=== PATIENT | male | born 1980 | race Caucasian/White ===

== ENCOUNTER → 2016-05-19 | Outpatient (CLI) | payer BC ==
[2016-05-19 11:49] LABS: CHLORIDE,CL 108 mmol/L (98-110); SODIUM,NA 138 mmol/L (136-146)
== END ==
LOC: MW.CHFP 11:07
PROVIDERS: ATTEND Nurse Practitioner Family
DX: R50.9 Fever, unspecified (principal); R19.7 Diarrhea, unspecified
CPT/HCPCS: 36415; 80053; 85025

== ENCOUNTER 2017-07-30 12:19 | Day surgery (SDC) | payer BC ==
[2017-07-30] MEDS ORDERED: Lidocaine 2% 5 ML SDV ONE (14:30)
[2017-07-30] MEDS ORDERED: Iopamidol 408 MG/ML 50 ML SDV ONE (14:30)
[2017-07-30] MEDS ORDERED: Betamethasone Acetate/Betamethasone Sod Phosphate 30 MG/5 ML MDV ONE (14:30)
[2017-07-30] MEDS ORDERED: Ropivacaine 0.5% 5 MG/ML 30 ML SDV ONE (14:30)
--- NOTE | 2017-07-30 15:15 | OR ---
SURGEON: Kanchan Higgins D.O. DATE OF PROCEDURE: 07/30/2017 OR STAFF PRESENT: 1. Ingrid Mcgregor RN. 2. Ingrid Lambert RN. 3. Andrew Eckert RT. WOUND CLASSIFICATION: I. PREOPERATIVE DIAGNOSES: 1. Bilateral spondylosis at L5-S1. 2. Bilateral spondylolisthesis at L5-S1. 3. Chronic low back pain. 4. degenerative disk disease, L5-S1. POSTOPERATIVE DIAGNOSES: 1. Bilateral spondylosis at L5-S1. 2. Bilateral spondylolisthesis at L5-S1. 3. Chronic low back pain. 4. degenerative disk disease, L5-S1. PROCEDURES PERFORMED: 1. Right L5-S1 pars injection. 2. Left L5-S1 pars injection. 3. Fluoroscopic guidance for needle placement. 4. Local with oral Valium for sedation. SCREENING QUESTIONS: The patient answered "No" to all the following questions: 1. Are you allergic to iodine, Betadine or latex? 2. Do you have a bleeding disorder? 3. Are you on anti-inflammatories or blood thinners? 4. Do you have any current local or systemic infections? MEDICAL NECESSITY: This is a patient with chronic low back pain who comes in for the above diagnostic procedure. This procedure is being performed in accordance with national guidelines written by the [employer]; please see medical necessity note in chart. DESCRIPTION OF PROCEDURE: The patient had the procedure thoroughly explained including risks, benefits and alternatives. Consent was signed in my clinic indicating understanding and willingness to proceed. The patient presented to [facility] and was escorted to the dressing room to disrobe and change into a hospital gown. Preoperative history and screening were performed by my nurse. Vital signs were taken and stable. The patient reported that Valium 10 milligrams was taken prior to the procedure. The patient was brought back to the procedure room and placed in the prone position on the procedure room table. A pillow was placed under the abdomen in order to flatten the lumbar lordosis. The back was prepped with ChloraPrep and sterilely draped. All personnel in the procedure room were dressed in appropriate attire including surgical scrubs, head and shoe covers. This was to ensure sterility while in the treatment room. During the time fluoroscopy was in use all personnel in the operating room wore lead luo with thyroid collars. Sterile technique was used during the procedure. The fluoroscope was positioned to provide a right oblique view for the L5 dorsal ramus block. This was begun by anesthetizing the skin and soft tissues over the right sacral sulcus. Then using fluoroscopic guidance, a sterile 22-gauge 3.5 inch spinal needle was positioned at the right sacral ala. Precise needle placement was confirmed by fluoroscopy in AP and oblique views, and 0.2 cubic centimeters of IsoVue-200 contrast dye was injected through microbore tubing under live fluoroscopy and showed no intravascular flow pattern and adequate flow over the target nerves. After negative aspiration, 0.5 cubic centimeters of 0.5% Ropivacaine was injected. No complications were noted. Then the fluoroscope was positioned for the left L5 dorsal ramus block. This was begun by anesthetizing the skin and soft tissues. Then with fluoroscopic guidance a sterile 22-gauge 3.5 inch spinal needle was positioned at the left sacral ala. Precise needle placement was confirmed with 0.2 cubic centimeters of IsoVue-200 contrast dye injected through microbore tubing under live fluoroscopy showing no intravascular flow pattern and adequate flow over the target L5 nerve. Then, 0.5 cubic centimeters of 0.5% Ropivacaine was injected after negative aspiration without complications. The procedure was well tolerated and vital signs were stable during and after the procedure. The staff escorted the patient to the recovery area. The patient was given both oral and written discharge and followup instructions. The patient will follow up with a pain diary which will be evaluated over this evening doing things that would normally cause pain. We will evaluate the efficacy of the diagnostic lumbar medial branch blocks as the patient will follow up in the clinic the next day. The patient was given both oral and written discharge and followup instructions. The patient voiced understanding including understanding of those signs and symptoms that would require emergency care and knows how to contact the office if there are any questions or concerns in the meantime. PREOPERATIVE PAIN: 8/10. POSTOPERATIVE PAIN: 6/10. FOLLOWUP: Follow up in [facility] with [facility] in 3 weeks. AJ / GELACIO /[id number]
== END 2017-07-30 14:40 | disposition home or self-care (01) ==
LOC: MW.SDS 12:19
PROVIDERS: ATTEND Anesthesiology
DX: G89.29 Other chronic pain (principal); M47.817 Spondylosis without myelopathy or radiculopathy, lumbosacral region; M43.17 Spondylolisthesis, lumbosacral region; M51.37 Other intervertebral disc degeneration, lumbosacral region; J32.9 Chronic sinusitis, unspecified; J34.2 Deviated nasal septum; H91.90 Unspecified hearing loss, unspecified ear; I10 Essential (primary) hypertension; E78.1 Pure hyperglyceridemia; F17.210 Nicotine dependence, cigarettes, uncomplicated; G47.33 Obstructive sleep apnea (adult) (pediatric); Z99.89 Dependence on other enabling machines and devices; Z79.899 Other long term (current) drug therapy
CPT/HCPCS: J0702; J2795; Q9966

== ENCOUNTER 2017-08-26 07:36 | Day surgery (SDC) | payer BC ==
[2017-08-26] MEDS ORDERED: EPINEPHrine 1 MG/ML SDV ONE (07:44)
[2017-08-26] MEDS ORDERED: Thrombin (Bovine) 5,000 Unit Kit ONE (07:44)
[2017-08-26] MEDS ORDERED: Lidocaine 1% with EPINEPHrine 1:100,000 10 ML MDV ONE (07:44)
[2017-08-26] MEDS ORDERED: Oxymetazoline 0.05% Nasal Spray 15 ML Bottle ONE (07:45)
[2017-08-26] MEDS ORDERED: Lidocaine 2% with EPINEPHrine 1:100,000 20 ML MDV ONE (07:45)
[2017-08-26] MEDS: Lactated Ringers 1,000 ML IV SCH (08:09)
--- NOTE | 2017-08-26 08:10 | PCM.HPR ---
H & P Addendum review - H & P Addendum Review Date of Original H & P: 08/18/17 Date Reviewed: 08/26/17 Time Reviewed: 09:15 Patient was Examined: No Changes
[2017-08-26] MEDS ORDERED: Remifentanil 1 MG Vial ONE ×3 (08:19→09:57)
--- NOTE | 2017-08-26 08:28 | PCM.PREANE ---
Preanesthetic Assessment - Anesthesia/Transfusion/Family Hx Anesthesia History: Prior Anesthesia Without Reaction Family History of Anesthesia Reaction: No Transfusion History: No Prior Transfusion(s) - Review of Systems General: No Symptoms Pulmonary: No Symptoms Cardiovascular: No Symptoms Gastrointestinal: No Symptoms Neurological: No Symptoms Other: Reports: None - Physical Assessment NPO Status Date: 08/25/17 NPO Status Time: 20:00 O2 Sat by Pulse Oximetry: 95 Respiratory Rate: 17 Vital Signs: Last Vital Signs Temp 35.8 C 08/26/17 07:50 Pulse 84 08/26/17 07:50 Resp 17 08/26/17 07:50 BP 144/82 H 08/26/17 07:50 Pulse Ox 95 08/26/17 07:50 Height: 1.88 m Weight: 123.377 kg ASA Class: 1 Mental Status: Alert & Oriented x3 Airway Class: Mallampati = 1 Dentition: Reports: Normal Dentition ROM/Head Extension: Full Lungs: Clear to Auscultation, Normal Respiratory Effort Cardiovascular: Regular Rate, Regular Rhythm - Allergies Allergies/Adverse Reactions: Allergies Allergy/AdvReac Type Severity Reaction Status Date / Time No Known Allergies Allergy Verified 08/21/17 10:35 - Blood Blood Available: No - Anesthesia Plan Pre-Op Medication Ordered: None - Acknowledgements Anesthesia Type Planned: General Anesthesia Pt an Appropriate Candidate for the Planned Anesthesia: Yes Alternatives and Risks of Anesthesia Discussed w Pt/Guardian: Yes Pt/Guardian Understands and Agrees with Anesthesia Plan: Yes Additional Comments: PMH: SINCERE, does not use cpap much, smoker , htn, SINCERE instruction sheets given. PreAnesthesia Questionnaire HEENT History: Reports: Other (See Below) Other HEENT History: wears glasses, deviated nasal septum Cardiovascular History: Reports: Hypertension Respiratory History: Reports: Sleep Apnea Other Respiratory History: does not use CPAP Musculoskeletal History: Reports: Other (See Below) Other Musculoskeletal History: occasional backpain Endocrine/Metabolic History: Reports: Obesity/BMI 30+ - Past Surgical History Head Surgeries/Procedures: Reports: None Musculoskeletal Surgical History: Reports: Carpal Tunnel Other Musculoskeletal Surgeries/Procedures:: jeanna carpal tunnel release - SUBSTANCE USE Smoking Status *Q: Current Every Day Smoker Tobacco Use Within Last Twelve Months: Cigarettes Recreational Drug Use History: No - HOME MEDS Home Medications: Home Meds Lidocaine/Prilocaine [Lidocaine-Prilocaine Cream] 1 applic TOP ASDIRECTED PRN [History] Lisinopril 20 mg PO DAILY 08/21/17 [History] - CURRENT (IN HOUSE) MEDS Current Meds: Current Medications Lactated Ringer's (Ringers, Lactated) 1,000 mls @ 125 mls/hr IV ASDIRECTED BRIDGER Last Admin: 08/26/17 08:09 Dose: 125 mls/hr Discontinued Medications Epinephrine HCl (Adrenalin) Confirm Administered Dose 3 mg .ROUTE .STK-MED ONE Stop: 08/26/17 07:45 Propofol (Diprivan 50 Ml) Confirm Administered Dose 150 mls @ as directed .ROUTE .STK-MED ONE Stop: 08/26/17 08:21 Lidocaine/Epinephrine (Xylocaine 1% With Epinephrine 1:100,000) Confirm Administered Dose 10 ml .ROUTE .STK-MED ONE Stop: 08/26/17 07:45 Lidocaine/Epinephrine (Xylocaine 2% With Epinephrine 1:100,000) Confirm Administered Dose 20 ml .ROUTE .STK-MED ONE Stop: 08/26/17 07:46 Oxymetazoline HCl (Afrin Original 0.05% Nasal [place]) Confirm Administered Dose 30 ml .ROUTE .STK-MED ONE Stop: 08/26/17 07:46 Remifentanil (Ultiva) Confirm Administered Dose 4 mg .ROUTE .STK-MED ONE Stop: 08/26/17 08:20 Remifentanil (Ultiva) Confirm Administered Dose 1 mg .ROUTE .STK-MED ONE Stop: 08/26/17 08:21 Thrombin (Thrombin-Jmi) Confirm Administered Dose 5,000 unit .ROUTE .STK-MED ONE Stop: 08/26/17 07:45
[2017-08-26] MEDS ORDERED: Propofol 200 MG/20 ML SDV ONE ×3 (09:40→12:13)
[2017-08-26] MEDS ORDERED: Lidocaine 2% 5 ML SDV ONE (09:40)
[2017-08-26] MEDS ORDERED: Midazolam 1 MG/ML 2 ML SDV ONE (09:40)
[2017-08-26] MEDS ORDERED: fentaNYL 250 MCG/5 ML SDV ONE (09:41)
[2017-08-26] MEDS ORDERED: HYDROmorphone 2 MG/ML SDV ONE (11:18)
[2017-08-26] MEDS ORDERED: Sodium Chloride 0.9% 120 ML ONE (11:29)
[2017-08-26] MEDS ORDERED: Acetaminophen 1,000 MG in Premix Bag 1 BAG IV ONE ×2 (12:11→17:02)
[2017-08-26] MEDS ORDERED: Sugammadex Sodium 200 MG/2 ML VIAL ONE (12:22)
[2017-08-26] MEDS: fentaNYL 100 MCG/2 ML SDV IVPUSH PRN ×2 (13:17→13:22)
--- NOTE | 2017-08-26 13:29 | PCM.POSTAN ---
POST ANESTHESIA ASSESSMENT - MENTAL STATUS Mental Status: Alert, Oriented - VITAL SIGNS Pulse Rate: 76 SaO2: 95 Resp Rate: 11 Blood Pressure: 120/84 - RESPIRATORY Respiratory Status: Respiratory Rate WNL, Airway Patent, O2 Saturation Stable - CARDIOVASCULAR CV Status: Pulse Rate WNL, Blood Pressure Stable - GASTROINTESTINAL GI Status: No Symptoms - PAIN Pain Score: 6 - POST OP HYDRATION Hydration Status: Adequate & Stable
[2017-08-26] MEDS ORDERED: Acetaminophen/HYDROcodone 325-5 MG Tab PO ONE (13:43)
--- NOTE | 2017-08-26 13:51 | PCM.OPNOTE ---
- General Post-Op/Procedure Note Condition: Good Free Text/Narrative:: Intake & Output 08/25/17 08/26/17 08/26/17 22:59 06:59 14:59 Intake Total 2900 Balance 2900 Diagnosis: Deviated nasal septum, nasal obstruction, maxillary sinusitis, obstructive sleep apnea, obesity Procedure: Septoplasty, bilateral maxillary sinus balloon dilation [ CPT 82311] using navigation [ CPT 41699] Surgeon: Elmira Chicas MD Anesthesia: General Anesthesiologist: Alfonso Felipe CRNA Date of procedure: 08/26/2017 Indications:Deviated nasal septum, nasal obstruction, maxillary sinusitis; had failed maximal medical therapy for sinusitis Findings: R DNS - Ant vertical septal cartilage fracture; dislocation of cartilage off the maxillary crest to the right; posterior chondro vomerine spur on right Operation Details: An informed consent was obtained. A time out was performed and the patient was brought back to the operating room. Gen. anesthesia was administered with an endotracheal tube. Bilateral nasal cavities were packed with oxymetazoline 0.05 % soaked cottonoid pledgets. Throat pack was placed. The patient was then prepped and draped in a standard fashion. Bilateral eyes were left exposed and lubricating ointment was inserted into the eyes. The pledgets were then removed. Nasal septum was infiltrated with 2% lidocaine 1: 100, 000 epinephrine in a standard fashion-a total of 4 mils was used. A left sided diana incision was performed. A left sided mucoperichondrial flap was elevated- with combination of michael and Jackson elevators. Posteriorly the flap was continued as a muco periosteal flap. A posterior chondrotomy was performed. Right-sided mucoperiosteal flap was elevated. A vertical incision was made in the septal cartilage just anterior to the vertical fracture line and the contralateral right sided mucoperichodrial flap was elevated. There was a tear in the flap anteriorly. A youssef scissor was used and the perpendicular plate of the ethmoid was removed. The vomer along with right-sided spur was also removed; small tear on the right side posteriorly. A vertical strip of cartilage was removed consisting of the fracture line and adjacent 5 mm. Also approximately 2 mm thin posterior vertical strip of cartilage was removed.The thin inferior strip of cartilage was removed using a septal knife. Subsequent to this the nasal septum was positioned towards the midline. Flap was intact on the left side. Flap incision was sutured with 4-0 plain gut on a Scott needle. Also the vertical tear on the right side anteriorly was sutured. Mattress sutures were also performed. The [employer] navigation system was set up and the Tracker was fixed to the fore head as per protocol. A successful registration was obtained. A cottonoid pledget soaked in 1: 22924 epinephrine each was placed in the middle meatus, draping over the middle turbinate axilla - this was done bilaterally. The left side was addressed first. After appropriate period of decongestion the cottonoid pledgets were removed. The middle turbinate was gently medialized with freer elevator and the 0 rigid nasal endoscope was introduced into the middle meatus. The uncinate process and bulla were identified. A 6mm maxillary sinus Nu Vent sinus balloon, attached to the sinus dilation system was used to cannulate the left maxillary sinus ostium lateral to the uncinate process. This was done just up till the black anisa under navigation. The balloon was inflated up to 10 nica pressure for 5 seconds and then deflated. the balloon was then slightly withdrawn in an inferior lateral direction and inflated again as above. The uncinate was medialised and using a 30 rigid endoscope was the maxillary ostium was examined - dilated and the sinus was thoroughly irrigated with saline using a curved suction. A similar procedure was repeated on the right side with visible medialisation of uncinate process and enlargement of maxillary sinus natural ostium. Photo documentation was done bilateral nasal cavities. Bilateral Saxena splints were placed and secured anteriorly to the columella with 2.0 prolene. Post nasal space was suctioned clear of blood bilaterally and per orally and the throat pack was removed. Specimens: none IV fluids: 2900 ml Blood loss: 10 ml Blood products: nil Disposition: PACU for recovery Follow up: In 1 week.
[2017-08-26] MEDS ORDERED: Ketorolac 30 MG/ML SDV IVPUSH ONE (13:52)
[2017-08-26] MEDS ORDERED: Ibuprofen 600 MG Tab PO ONE (15:12)
[2017-08-26] MEDS ORDERED: Ibuprofen 600 MG Tab ONE (15:17)
[2017-08-26] MEDS ORDERED: oxyCODONE 5 MG Tab PO ONE (16:07)
--- NOTE | 2017-08-26 16:48 | PCM48HPAN ---
Post Anesthesia Note - EVALUATION WITHIN 48HRS OF ANESTHETIC Vital Signs in Normal Range: Yes Patient Participated in Evaluation: Yes Respiratory Function Stable: Yes Airway Patent: Yes Cardiovascular Function Stable: Yes Hydration Status Stable: Yes Pain Control Satisfactory: No Nausea and Vomiting Control Satisfactory: Yes Mental Status Recovered: Yes Pulse Rate: 76 Resp Rate: 14 Temperature: 98.2 F Blood Pressure: 120/84 - COMMENTS/OBSERVATIONS Free Text/Narrative:: Pt continues to have been at this time. Dr Chicas wants the patient admitted for narcotic administration and observations because of the patients history of SINCERE.
[2017-08-26] MEDS ORDERED: Acetaminophen 325 MG Tab PO PRN (17:00)
[2017-08-26] MEDS: Oxymetazoline 0.05% Nasal Spray 15 ML Bottle NAS SCH ×2 (17:13→22:00)
[2017-08-26] MEDS ORDERED: oxyCODONE 5 MG Tab PO PRN (19:08)
--- NOTE | 2017-08-26 21:36 | PCM.SN ---
- Free Text/Narrative Note: Talked with the patient regarding his SINCERE and his CPAP machine. The patient is currently non compliant at home because his mask leaks too much and the pressure is so high that he feels like he cant breathe/exhale. At this time the patient really doesn't want to use his CPAP machine as "the pressure is too much". I spoke with him about trying BiPAP and how this may be more comfortable since there wouldn't be a continuous high pressure. The patient was very willing to try this. Also, the patients own home mask is old and the mask gasket is not very pliable leading to a lot of leaking. The patient was fitted with a new full mask and placed on 10/5 FiO2 30%. The patient stated that this setup was much more comfortable and was willing to try and sleep with it tonight. RT, nursing, and Dr Chicas were informed of this.
[2017-08-26] MEDS: Ibuprofen 400 MG Tab PO SCH (22:00)
[2017-08-26] MEDS: Acetaminophen 1,000 MG in Premix Bag 1 BAG IV SCH (23:00)
[2017-08-26] MEDS: Ranitidine 15 MG/ML Syrup 10 ML UD Cup PO SCH (23:50)
[2017-08-27] MEDS: Lactated Ringers 1,000 ML IV SCH (00:03)
[2017-08-27] MEDS: Acetaminophen 1,000 MG in Premix Bag 1 BAG IV SCH (04:48)
[2017-08-27] MEDS: Oxymetazoline 0.05% Nasal Spray 15 ML Bottle NAS SCH (05:24)
[2017-08-27] MEDS: Ibuprofen 400 MG Tab PO SCH (06:57)
[2017-08-27] MEDS ORDERED: Amoxicillin/Clavulanate K 875-125 MG Tab PO SCH (09:00)
[2017-08-27] MEDS ORDERED: Bacitracin Oint 1 GM U/D Packet ONE (09:21)
[2017-08-27] MEDS: Ranitidine 15 MG/ML Syrup 10 ML UD Cup PO SCH (09:25)
[2017-08-27] MEDS ORDERED: Acetaminophen 325 MG Tab PO SCH (09:45)
--- NOTE | 2017-08-27 11:27 | PCM.SN ---
- Free Text/Narrative Note: Discussed post discharge care with Tre from RT. Tre has fit patients existing mask and CPAP machine to the patient. He will do a trial of patients own CPAP prior to diacharge. Pt has been told of the importaance of using CPAP for the next few nights. SINCERE discharge instructions given to patient yeaterday in pre op holding.
--- NOTE | 2017-08-27 11:29 | PCM.SN ---
- Free Text/Narrative Note: Patient is postoperative day 1 from a septoplasty and maxillary balloon Sinuplasty. Immediate postop period was eventful for patient desaturating while asleep. He also had suboptimal pain control until yesterday. He was reviewed several times by anesthesia and respiratory therapist for desaturations. He was tried on BiPAP and eventually this morning he adjusted well to his home CPAP and has been saturating adequately. He was reevaluated by the respiratory therapist and they were happy with his respiratory status. Pain is better controlled this morning. He continues to have minimal blood stained mucoid discharge from the right nasal cavity which is controlled with Afrin and the nasal drip pads. On examination : Patient is sitting propped up in bed with minimal blood stained the mucoid rhinorrhea from the right nasal cavity. This was suctioned and cleaned and Afrin was administered. Posterior pharyngeal wall was dry. All vitals were stable and oxygen saturations were above 92% while awake. Assessment and plan: - Status post surgery as above. Patient to follow postop advice including antibiotics and analgesia and topical nasal medication as was provided to him postoperatively yesterday - separate printout was provided by me and discussed with him in detail. - Patient to use his CPAP at home and follow instructions as provided by anesthesia department. - Patient to follow-up with the primary care provider / provider of CPAP for titration. - Patient to go home with nasal drip pads - Can be discharged after seen by anesthesia for their post op rounds
== END 2017-08-27 13:10 | disposition home or self-care (01) ==
LOC: MW.SDS 07:36 → MW.MS 16:16 → MW.SDS 08-27 13:10
PROVIDERS: ATTEND Otolaryngology
DX: J34.2 Deviated nasal septum (principal); J32.0 Chronic maxillary sinusitis; G47.33 Obstructive sleep apnea (adult) (pediatric); Z99.89 Dependence on other enabling machines and devices; G89.29 Other chronic pain; M47.816 Spondylosis without myelopathy or radiculopathy, lumbar region; M43.07 Spondylolysis, lumbosacral region; M51.36 Other intervertebral disc degeneration, lumbar region; I10 Essential (primary) hypertension; E78.1 Pure hyperglyceridemia; E66.9 Obesity, unspecified; Z68.34 Body mass index [BMI] 34.0-34.9, adult; F17.210 Nicotine dependence, cigarettes, uncomplicated; Z79.899 Other long term (current) drug therapy
CPT/HCPCS: 30520; 31295; 61782; 94660; A9270; C1726; J0171; J1170; J2250; J3010; J3490; J7120; 00160; J2704